=== PATIENT | female | born 1950 | race Caucasian/White ===

== ENCOUNTER 2022-11-09 10:24 | Outpatient (CLI) | payer MEDICARE, OTHER | END 2022-11-09 10:25 | disposition home or self-care (01) | LOC: RAD 10:24 | PROVIDERS: ATTEND Nurse Practitioner Family | DX: N95.9 Unspecified menopausal and perimenopausal disorder (principal); F41.1 Generalized anxiety disorder; F17.200 Nicotine dependence, unspecified, uncomplicated | CPT/HCPCS: 36415; 71046; 80053; 80061; 82306; 82607; 82746; 83036; 83970; 84443; 85025; 86376; 86800 ==

== ENCOUNTER 2023-01-09 12:55 | Outpatient (CLI) | payer MEDICARE ==
[~2023-01-09 12:55] MED LIST: Magnevist 469MG/ML 20 ML VIAL ONE
== END 2023-01-09 12:56 | disposition home or self-care (01) ==
LOC: MRI 12:55
PROVIDERS: ATTEND Nurse Practitioner Family
DX: F33.1 Major depressive disorder, recurrent, moderate (principal); E11.9 Type 2 diabetes mellitus without complications; E78.2 Mixed hyperlipidemia; N95.1 Menopausal and female climacteric states; N95.9 Unspecified menopausal and perimenopausal disorder; F41.1 Generalized anxiety disorder; I65.21 Occlusion and stenosis of right carotid artery; F17.210 Nicotine dependence, cigarettes, uncomplicated; R41.89 Other symptoms and signs involving cognitive functions and awareness
CPT/HCPCS: 70553; 93880; A9579

== ENCOUNTER 2024-04-10 07:12 | Outpatient (CLI) | payer MEDICARE | END 2024-04-10 07:13 | disposition home or self-care (01) | LOC: ULT 07:12 | PROVIDERS: ATTEND Nurse Practitioner Family | DX: Z13.6 Encounter for screening for cardiovascular disorders (principal); I77.811 Abdominal aortic ectasia | CPT/HCPCS: 76775 ==

== ENCOUNTER 2024-04-26 10:00 | Outpatient (CLI) | payer MEDICARE | END 2024-04-26 12:00 | disposition home or self-care (01) | LOC: ULT 10:00 | PROVIDERS: ATTEND Internal Medicine | DX: R74.8 Abnormal levels of other serum enzymes (principal); R16.1 Splenomegaly, not elsewhere classified | CPT/HCPCS: 76705 ==

== ENCOUNTER 2024-08-21 09:57 | Day surgery (SDC) | payer OTHER ==
[2024-08-12 08:42] VITALS: BMI 24.7
[2024-08-21] MEDS ORDERED: CEFAZOLIN 2 GM VIAL ONE (13:38)
[2024-08-21] MEDS ORDERED: Lidocaine 1% PF 5 ML VIAL ONE (13:47)
[2024-08-21] MEDS ORDERED: Ondansetron PF 4 MG/2 ML Vial ONE (13:47)
[2024-08-21] MEDS ORDERED: PROPOFOL 20 ML ONE (13:47)
[2024-08-21] MEDS ORDERED: fentaNYL 50 mcg/mL 1 mL Vial ONE (14:55)
[2024-08-21] MEDS ORDERED: HYDROcodone/Acetaminophen 10/325 mg Tablet ONE (14:57)
== END 2024-08-21 16:15 | disposition home or self-care (01) ==
LOC: SDC 09:57
PROVIDERS: ATTEND Orthopaedic Surgery
PROC: 0LN70ZZ Release Right Hand Tendon, Open Approach (ICD-10-PCS; principal; 2024-08-21)
DX: M65.351 Trigger finger, right little finger (principal); E78.00 Pure hypercholesterolemia, unspecified; F17.200 Nicotine dependence, unspecified, uncomplicated; Z90.710 Acquired absence of both cervix and uterus; Z79.84 Long term (current) use of oral hypoglycemic drugs; Z79.85 Long-term (current) use of injectable non-insulin antidiabetic drugs; Z79.899 Other long term (current) drug therapy
CPT/HCPCS: 26055; A6223; J2405; J2704; J3010